=== PATIENT | female | born 1935 | race African-American/Black ===

== ENCOUNTER 2018-08-08 11:45 | Inpatient (IN) | payer MEDICARE ==
[~2018-08-08] VITALS: Ht 160 cm; Wt 59.9 kg
[2018-08-08] MEDS ORDERED: SODIUM CHLORIDE 0.9% 1,000 ML IV ONE (12:17)
[2018-08-08 12:33] LABS: HEMATOCRIT. 27.1 % (36.0-48.0); HEMOGLOBIN. 8.7 g/dL (12.0-16.0); MEAN CORPUSCULAR HEMOGLOBIN 25.6 pg (28.0-32.0); MEAN CORPUSCULAR VOLUME 79.6 fL (81.0-99.0); MEAN PLATELET VOLUME 8.4 fl (7.4-10.4); PLATELET 278 x1000/uL (130-400); RED CELL DISTRIBUTION WIDTH 20.6 % (11.6-14.6)
[2018-08-08 12:38] LABS: CHLORIDE 101 mEq/L (98-107)
[2018-08-08 12:39] LABS: INR 1.2; PROTHROMBIN TIME 11.8 sec (9.6-11.0)
[2018-08-08 13:03] LABS: PLATELET ESTIMATE NORMAL
[2018-08-08] MEDS ORDERED: POTASSIUM CHLORIDE 20MEQ TABLET SR PO ONE (17:15)
[2018-08-08 20:36] LABS: CLARITY URINE CLOUDY (CLEAR); COLOR URINE YELLOW (YELLOW); KETONES URINE 1+ (NEGATIVE); LEUKOCYTE ESTERASE URINE 1+ (NEGATIVE); NITRITE URINE NEGATIVE (NEGATIVE); OCCULT BLOOD URINE 2+ (NEGATIVE); PH URINE 6.5 (4.5-8.0); PROTEIN URINE NEGATIVE (NEGATIVE)
[2018-08-08 22:30] VITALS: BP 118/73
[2018-08-08] MEDS ORDERED: PANTOPRAZOLE 40MG DR TABLET PO NR (23:15)
[2018-08-08] MEDS ORDERED: ACETAMINOPHEN 325MG TABLET PO PRN (23:15)
[2018-08-09] VITALS: BP 129/71
[2018-08-09 04:00] VITALS: BP 111/62
[2018-08-09 06:48] LABS: BASOPHILS % 0.4 % (0.0-2.0); HEMATOCRIT. 24.6 % (36.0-48.0); HEMOGLOBIN. 8.1 g/dL (12.0-16.0); LYMPHOCYTES % 16.6 % (20.0-50.0); MEAN CORPUSCULAR HEMOGLOBIN 26.1 pg (28.0-32.0); MEAN CORPUSCULAR VOLUME 79.4 fL (81.0-99.0); MEAN PLATELET VOLUME 8.9 fl (7.4-10.4); MONOCYTES % 11.6 % (2.0-8.0); NEUTROPHILS % 69.4 % (40.0-76.0); PLATELET 261 x1000/uL (130-400); RED BLOOD CELL COUNT 3.09 mill/uL (4.2-5.4)
[2018-08-09 07:18] LABS: CHLORIDE 105 mEq/L (98-107)
[2018-08-09 07:19] LABS: VITAMIN B12 SERUM 634 pg/mL (211-911)
[2018-08-09 07:33] LABS: TOTAL IRON BINDING CAPACITY 132 ug/dL (250-450)
[2018-08-09 07:54] VITALS: BP 111/59
[2018-08-09] MEDS ORDERED: POTASSIUM CHLORIDE 20MEQ TABLET SR PO NR (08:03)
[2018-08-09] MEDS ORDERED: POTASSIUM CHLORIDE INJ 60 MEQ in DEXT 5% WATER 500 ML IV NR (09:00)
[2018-08-09 12:04] VITALS: BP 100/54
[2018-08-09 16:31] LABS: HEMATOCRIT 25.6 % (36.0-48.0); HEMOGLOBIN 8.2 g/dL (12.0-16.0)
[2018-08-09 16:33] VITALS: BP 108/52
[2018-08-09 17:27] VITALS: BP 108/52
== END 2018-08-09 18:36 | disposition short-term general hospital (02) | DRG 74 ==
LOC: ER 11:45 → 6EST 16:34 → EDBEDREQ 16:36 → ENRESERV 20:43 → 6WST 08-09 05:15
PROVIDERS: ADMIT Ophthalmology; ATTEND Ophthalmology
DX: G90.8 Other disorders of autonomic nervous system (principal); D64.9 Anemia, unspecified; E87.6 Hypokalemia; R63.4 Abnormal weight loss; Z87.891 Personal history of nicotine dependence; Z68.23 Body mass index [BMI] 23.0-23.9, adult
CPT/HCPCS: 36415; 71045; 80048; 82607; 83540; 83550; 83735; 83880; 84132; 84443; 84484; 85014; 85018; 93005; 96360; 99285; J3480; J7030; J7060